=== PATIENT | male | born 1980 | race Caucasian/White ===

== ENCOUNTER → 2017-02-13 | Outpatient (REF) | payer OTHER | LOC: M LAB REF 16:04 | PROVIDERS: ATTEND Physician Assistant | DX: R53.81 Other malaise (principal) ==

== ENCOUNTER → 2017-05-03 | Outpatient (REF) | payer OTHER ==
[2017-05-03 13:31] LABS: MEAN CORPUSCULAR HGB CONC 35.9 g/dl (32.0-36.5); MEAN CORPUSCULAR VOLUME 89.2 fl (80.0-96.0); RED CELL DISTRIBUTION WIDTH 12.8 % (11.5-14.5); WHITE BLOOD COUNT 5.6 K/mm3 (4.0-10.0)
[2017-05-03 13:53] LABS: ALBUMIN 4.7 GM/DL (3.2-5.2); ALBUMIN/GLOBULIN RATIO 1.81 (1.00-1.93); ALKALINE PHOSPHATASE 80 U/L (45-117); ALT/SGPT 26 U/L (12-78); ANION GAP 6 MEQ/L (8-16); AST/SGOT 16 U/L (15-37); BILIRUBIN,TOTAL 0.6 MG/DL (0.2-1.0); BLOOD UREA NITROGEN 13 MG/DL (7-18); CALCIUM LEVEL 9.1 MG/DL (8.5-10.1); CARBON DIOXIDE LEVEL 31 MEQ/L (21-32); CHLORIDE LEVEL 104 MEQ/L (98-107); CHOLESTEROL LEVEL 207 MG/DL (<200); CREATININE FOR GFR 1.19 MG/DL (0.70-1.30); GLOMERULAR FILTRATION RATE > 60.0 (>60); GLUCOSE, FASTING 90 MG/DL (70-105); POTASSIUM SERUM 4.4 MEQ/L (3.5-5.1); SODIUM LEVEL 141 MEQ/L (136-145); TOTAL PROTEIN 7.3 GM/DL (6.4-8.2); TRIGLYCERIDES LEVEL 189 MG/DL (<150)
== END ==
LOC: M SFHCPLAZ 09:54
PROVIDERS: ATTEND Nurse Practitioner Adult Health
DX: Z83.49 Family history of other endocrine, nutritional and metabolic diseases (principal)

== ENCOUNTER → 2017-05-23 | Outpatient (CLI) | payer BC, OTHER ==
[~2017-05-23] MED LIST: E-Z-GAS II EFFERVESCENT PACKET (SODIUM BICARB./CITRIC ACID/SIMETHICONE) As Ordered ONE; E-Z-HD 98% w/w 340GM SUSP BTL As Ordered ONE; E-Z-PAQUE 96% w/w SUSP 176GM BTL As Ordered ONE
--- NOTE | 2017-05-23 17:50 | REP ---
UPPER GI, AIR CONTRAST: The procedure was performed under the direct supervision of Dr. Ardon. The images were reviewed with Dr. Ardon. The deli associate film shows no organomegaly or pathological masses. The intestinal gas pattern is nonspecific. Liquid barium and gas-producing granules were given in the erect position as well as liquid barium in the prone oblique position in order to perform a double contrast upper GI examination. The oral and pharyngeal stages of deglutition are unremarkable. Esophageal transport is prompt and efficient and there is no esophagitis, stricture, mucosal ring or hiatal hernia. The gastroesophageal junction is patulous and there is gastroesophageal reflux demonstrated to above the level of the sukh. Within the stomach, there are prominent gastric folds which may represent gastritis. There is no jun ulcer identified. The duodenal engel are normally outlined. The mucosal folds are smooth and regular. There is no duodenitis, pancreatis, peptic ulcer disease or neoplasm. The visualized portion of the proximal small bowel appears normal in course and caliber. IMPRESSION: 1. The gastroesophageal junction is patulous and there is gastroesophageal reflux demonstrated to above the level of the sukh. 2. There are prominent gastric folds within the stomach. This may represent gastritis. There is no jun ulcer identified. 1 minute and 59 seconds of fluoroscopy time was utilized for this procedure. The stomach engel are normally outlined. The rugal folds are smooth and regular. There is no gastritis, neoplasm or ulcer disease. Reviewed by MARIZA Gonzalez 05/24/2017 01:34 PEdited and Signed by Arnaud Ardon MD 05/24/2017 05:34 P
== END ==
LOC: M RAD 08:58
PROVIDERS: ATTEND Nurse Practitioner Adult Health
DX: R01.1 Cardiac murmur, unspecified (principal); K21.9 Gastro-esophageal reflux disease without esophagitis

== ENCOUNTER → 2017-11-16 | Outpatient (CLI) | payer BC, OTHER | LOC: M WUC 08:09 | DX: M54.5 Low back pain (principal); M24.9 Joint derangement, unspecified; M99.03 Segmental and somatic dysfunction of lumbar region; M79.1 Myalgia | CPT/HCPCS: 72110 ==

== ENCOUNTER 2018-12-09 19:51 | Emergency (ER) | payer BC, OTHER ==
[~2018-12-09] VITALS: Ht 170.2 cm; Wt 58.6 kg
[2018-12-09] MEDS ORDERED: KETOROLAC 30 MG/ML VIAL (J1885) IV ONE (20:30)
[2018-12-09] MEDS ORDERED: MORPHINE 4 MG/ML 1ML VIAL/SYRINGE (J2270) IV ONE (20:30)
[2018-12-09] MEDS ORDERED: ONDANSETRON 4MG/2ML VIAL (J2405) IV ONE (20:30)
[2018-12-09] MEDS ORDERED: NS 1,000 ML IV ONE (20:30)
[2018-12-09 20:37] LABS: BASO % 0.8 % (0.0-1.0); EOS # 0.2 10^3/uL (0.0-0.50); EOS % 3.6 % (0.0-3.0); HEMATOCRIT 44.2 % (42.0-52.0); HEMOGLOBIN 15.6 g/dl (13.5-17.5); LYMPH # 2.1 10^3/uL (1.5-4.5); LYMPH % 39.7 % (24.0-44.0); MEAN CORPUSCULAR HEMOGLOBIN 29.9 pg (27.0-33.0); MEAN CORPUSCULAR HGB CONC 35.3 g/dl (32.0-36.5); MEAN CORPUSCULAR VOLUME 84.8 fl (80.0-96.0); MONO # 0.4 10^3/uL (0.0-0.8); MONO % 7.7 % (0.0-5.0); NEUTROPHILS # 2.5 10^3/uL (1.8-7.7); NEUTROPHILS % 47.8 % (36.0-66.0); PLATELET COUNT, AUTOMATED 231 10^3/uL (150-450); RED BLOOD COUNT 5.21 10^6/uL (4.30-6.10); WHITE BLOOD COUNT 5.3 10^3/uL (4.0-10.0)
[2018-12-09 21:02] LABS: ALBUMIN 4.8 GM/DL (3.2-5.2); ALT/SGPT 18 U/L (12-78); AMYLASE 80 U/L (25-115); BILIRUBIN,DIRECT 0.2 MG/DL (0.0-0.2); BILIRUBIN,TOTAL 0.7 MG/DL (0.2-1.0); BLOOD UREA NITROGEN 15 MG/DL (7-18); CALCIUM LEVEL 8.9 MG/DL (8.5-10.1); CARBON DIOXIDE LEVEL 29 MEQ/L (21-32); CHLORIDE LEVEL 100 MEQ/L (98-107); GLOMERULAR FILTRATION RATE > 60.0 (>60); GLUCOSE, FASTING 111 MG/DL (70-100); LIPASE 138 U/L (73-393); POTASSIUM SERUM 2.9 MEQ/L (3.5-5.1); SODIUM LEVEL 139 MEQ/L (136-145); TOTAL PROTEIN 7.3 GM/DL (6.4-8.2)
[2018-12-09] MEDS ORDERED: CIPROFLOXACIN 400 MG in APPROPRIATE DILUENT 1 EA IV ONE (21:15)
[2018-12-09] MEDS ORDERED: KCL 10MEQ/100ML SWI (KRUN) 10 MEQ in APPROPRIATE DILUENT 1 EA IV ONE ×4 (21:15)
[2018-12-09] MEDS ORDERED: POTASSIUM CHLORIDE 10 MEQ SR TABLET PO ONE (21:15)
[2018-12-09] MEDS ORDERED: MORPHINE 2 MG/ML 1ML SYRINGE (J2270) IV ONE (21:45)
--- NOTE | 2018-12-09 21:54 | REPVR ---
EXAM: US Abdomen Limited, Right Upper Quadrant EXAM DATE/TIME: 12/09/2018 9:23 PM CLINICAL HISTORY: 38 years old, male; Pain; Abdominal pain; Epigastric; Additional info: Ajay TECHNIQUE: Real-time ultrasound of the abdomen with image documentation. Examination was focused on the right upper quadrant. COMPARISON: No relevant prior studies available. FINDINGS: Liver: The liver echogenicity appears slightly decreased and the periportal triads are slightly echogenic. This "starry tamera appearance" may be seen with acute hepatitis. However, this finding has been found to have poor sensitivity and specificity. No focal hepatic lesion is identified. Gallbladder: The gallbladder is mildly distended. There is a small amount of sludge within the gallbladder. No gallbladder wall thickening or pericholecystic fluid is present. No gallstones are identified. Common bile duct: The common bile duct has a normal caliber measuring 2.3 mm. Pancreas: Inadequate evaluation of the pancreas secondary to overlying bowel gas. Right kidney: Normal. No mass. No hydronephrosis. Intraperitoneal space: No abdominal ascites. IMPRESSION: 1. Gallbladder distention with mild sludge. No gallstones, wall thickening or pericholecystic fluid is identified to indicate acute cholecystitis. Consider nonemergent hepatobiliary scan for evaluation of possible gallbladder dysfunction as clinically indicated. 2. Hepatic "starry tamera appearance" which may be seen with acute hepatitis. Correlate clinically. Electronically signed by: Elton Melo On 12/09/2018 21:53:44 PM
--- NOTE | 2018-12-09 22:33 | REPVR ---
EXAM: CT Abdomen and Pelvis Without Contrast EXAM DATE/TIME: 12/09/2018 9:12 PM CLINICAL HISTORY: 38 years old, male; Pain; Abdominal pain; Localized; Right; Additional info: R flank pain TECHNIQUE: Axial computed tomography images of the abdomen and pelvis without contrast. All CT scans at this facility use at least one of these dose optimization techniques: automated exposure control; mA and/or kV adjustment per patient size (includes targeted exams where dose is matched to clinical indication); or iterative reconstruction. Coronal and sagittal reformatted images were created and reviewed. COMPARISON: No relevant prior studies available. FINDINGS: Lower thorax: No acute findings. ABDOMEN: Liver: Normal. No mass. Gallbladder and bile ducts: The gallbladder measures 4.4 cm in diameter. Pancreas: Normal. No ductal dilation. Spleen: Normal. No splenomegaly. Adrenals: Normal. No mass. Kidneys and ureters: Normal. No hydronephrosis. Stomach and bowel: Borderline to mild fluid distention of proximal small bowel with collapsed distal small bowel suggesting some degree of small bowel obstruction. There appears to be a point of transition in the left abdomen on series 202, image #42. Appendix: There are no changes of appendicitis. A normal appendix is not seen. PELVIS: Bladder: Unremarkable as visualized. Reproductive: Unremarkable as visualized. ABDOMEN and PELVIS: Intraperitoneal space: Normal. No free air. No significant fluid collection. Bones/joints: No acute fracture. No dislocation. Soft tissues: Minimal fat umbilical hernia Vasculature: Normal. No abdominal aortic aneurysm. Lymph nodes: Normal. No enlarged lymph nodes. IMPRESSION: 1. Small bowel obstruction with a point of transition in the left abdomen. 2. Borderline gallbladder distention with no stones. 3. Otherwise negative CT abdomen/pelvis. Electronically signed by: Rob Zimmerman On 12/09/2018 22:32:47 PM
[2018-12-09] MEDS ORDERED: CIPROFLOXACIN 500 MG TAB PO ONE (23:00)
[2018-12-09] MEDS ORDERED: K-TA10TA PO (23:11)
[2018-12-09] MEDS ORDERED: NORCOTAB PO (23:11)
[2018-12-09] MEDS ORDERED: ZOFR4TAB16 PO (23:11)
[2018-12-09] MEDS ORDERED: CIPR-249 PO (23:11)
[2018-12-09 23:19] VITALS: BP 119/68
[2018-12-09] MEDS ORDERED: NORCO 5/325MG TABLET (BULK FOR ED) PO ONE (23:45)
[2018-12-10 09:57] LABS: HEPATITIS B SURFACE ANTIGEN NEGATIVE (NEGATIVE)
[2018-12-10 10:25] LABS: HEPATITIS B CORE ANTIBODY IGM NEGATIVE (NEGATIVE)
[2018-12-10 10:27] LABS: HEPATITIS A ANTIBODY IGM NEGATIVE (NEGATIVE)
--- NOTE | 2018-12-10 15:23 | ED PDOC ---
Post-Departure Follow-Up dr ellis faxed formal report of ct abd/p for fu Herminia Workman MD Dec 10, 2018 15:23
--- NOTE | 2018-12-10 15:24 | ED PDOC ---
Post-Departure Follow-Up additionally dr plaza faxed [facility]b [facility] for fu Herminia Workman MD Dec 10, 2018 15:24
== END 2018-12-09 23:59 | disposition home or self-care (01) ==
LOC: M ED 19:51
DX: N39.0 Urinary tract infection, site not specified (principal); K75.9 Inflammatory liver disease, unspecified; R10.11 Right upper quadrant pain
CPT/HCPCS: 36415; 74176; 76705; 80048; 80076; 81001; 82150; 83690; 85025; 86705; 86709; 86803; 87086; 87340; 96361; 96365; 96366; 96367; 96375; 99284; J1885; J2270; J2405

== ENCOUNTER → 2021-02-16 | Outpatient (CLI) | payer BC, OTHER ==
[~2021-02-16] MED LIST changes: +CIPR-249 PO; -E-Z-GAS II EFFERVESCENT PACKET (SODIUM BICARB./CITRIC ACID/SIMETHICONE) As Ordered ONE; -E-Z-HD 98% w/w 340GM SUSP BTL As Ordered ONE; -E-Z-PAQUE 96% w/w SUSP 176GM BTL As Ordered ONE; +HYDR-3715 PO; +K-TA10TA PO; +ZOFR4TAB16 PO
--- NOTE | 2021-02-17 03:15 | REP ---
INDICATION: CONTUSION COMPARISON: None. TECHNIQUE: AP, lateral, bilateral oblique views left 1st digit. FINDINGS: The osseous structures and joint spaces are intact and normal. There is no evidence for acute fracture or dislocation. Surrounding soft tissues are unremarkable. No subcutaneous emphysema or radiodense foreign body. IMPRESSION: . No acute fracture or dislocation. <Electronically signed by Bryant Fiore > 02/17/21 [id number]
== END ==
LOC: M WUC 16:34
PROVIDERS: ATTEND Physician Assistant
DX: S60.112A Contusion of left thumb with damage to nail, initial encounter (principal); Y92.9 Unspecified place or not applicable; Y93.9 Activity, unspecified; Y99.9 Unspecified external cause status

== ENCOUNTER → 2022-03-16 | Outpatient (REF) | payer OTHER ==
[2022-03-16 19:03] LABS: ALT/SGPT 22 U/L (12-78); BLOOD UREA NITROGEN 16 MG/DL (7-18); CALCIUM LEVEL 9.6 MG/DL (8.5-10.1); CARBON DIOXIDE LEVEL 30 MEQ/L (21-32); CHLORIDE LEVEL 103 MEQ/L (98-107); GLOMERULAR FILTRATION RATE > 60.0 (>60); GLUCOSE, FASTING 93 MG/DL (70-100); POTASSIUM SERUM 3.7 MEQ/L (3.5-5.1); SODIUM LEVEL 139 MEQ/L (136-145); TOTAL PROTEIN 7.1 GM/DL (6.4-8.2)
== END ==
LOC: M LABWUC 16:21
PROVIDERS: ATTEND Internal Medicine
DX: B35.6 Tinea cruris (principal)

== ENCOUNTER → 2024-01-16 | Outpatient (CLI) | payer OTHER, BC ==
[~2024-01-16] MED LIST changes: -K-TA10TA PO; +POTA-164 PO
[2024-01-16 14:43] LABS: BASO % 0.5 % (0.0-1.0); EOS # 0.2 10^3/uL (0.0-0.5); EOS % 3.4 % (0.0-3.0); HEMATOCRIT 45.3 % (42.0-52.0); HEMOGLOBIN 15.9 g/dl (13.5-17.5); LYMPH # 1.5 10^3/uL (1.5-5.0); LYMPH % 33.5 % (24.0-44.0); MEAN CORPUSCULAR HEMOGLOBIN 30.5 pg (27.0-33.0); MEAN CORPUSCULAR HGB CONC 35.1 g/dl (32.0-36.5); MEAN CORPUSCULAR VOLUME 86.9 fl (80.0-96.0); MONO # 0.4 10^3/uL (0.0-0.8); NEUTROPHILS # 2.3 10^3/uL (1.5-8.5); NEUTROPHILS % 53.7 % (36.0-66.0); PLATELET COUNT, AUTOMATED 202 10^3/uL (150-450); RED BLOOD COUNT 5.21 10^6/uL (4.30-6.10); WHITE BLOOD COUNT 4.4 10^3/uL (4.0-10.0)
[2024-01-16 14:46] LABS: ALBUMIN 4.7 G/DL (3.2-5.2); ALKALINE PHOSPHATASE 92 U/L (46-116); ALT/SGPT 10 U/L (7.0-40); AST/SGOT 9 U/L (<34); BILIRUBIN,TOTAL 0.9 MG/DL (0.3-1.2); BLOOD UREA NITROGEN 14 MG/DL (9-23); CALCIUM LEVEL 9.3 MG/DL (8.5-10.1); CARBON DIOXIDE LEVEL 29 MMOL/L (20-31); CHLORIDE LEVEL 105 MMOL/L (98-107); CREATININE FOR GFR 0.76 MG/DL (0.70-1.30); GLOMERULAR FILTRATION RATE > 60.0 (>60); GLUCOSE, FASTING 144 MG/DL (60-100); POTASSIUM SERUM 4.3 MMOL/L (3.5-5.1); SODIUM LEVEL 137 MMOL/L (136-145); TOTAL PROTEIN 6.9 G/DL (5.7-8.2)
[2024-01-16 15:06] LABS: CREATININE, URINE 112.3 MG/DL; MALB URINE SIEMENS < 3.0 MG/L; MAU/CREAT RATIO 2.6 MCG/MG (0.0-30.0)
[2024-01-18 16:09] LABS: INSULIN LEVEL 5.5 uIU/mL (2.6-24.9); ISLET CELL ANTIBODIES Negative (Neg:<1:1)
== END ==
LOC: M PLALAB 09:31
PROVIDERS: ATTEND Physician Assistant
DX: E11.9 Type 2 diabetes mellitus without complications (principal); K21.00 Gastro-esophageal reflux disease with esophagitis, without bleeding

== ENCOUNTER → 2024-10-21 | Outpatient (CLI) | payer BC ==
[2024-10-21 14:09] LABS: ALBUMIN 4.1 G/DL (3.2-5.2); ALKALINE PHOSPHATASE 79 U/L (40-129); ALT/SGPT 10 U/L (7.0-40); AST/SGOT 8 U/L (<34); BILIRUBIN,TOTAL 0.6 MG/DL (0.3-1.2); BLOOD UREA NITROGEN 9 MG/DL (9-23); CALCIUM LEVEL 9.4 MG/DL (8.5-10.1); CARBON DIOXIDE LEVEL 27 MMOL/L (20-31); CHLORIDE LEVEL 105 MMOL/L (98-107); CREATININE FOR GFR 0.76 MG/DL (0.70-1.30); GLOMERULAR FILTRATION RATE > 60.0 (>60); GLUCOSE, FASTING 197 MG/DL (60-100); POTASSIUM SERUM 3.8 MMOL/L (3.5-5.1); SODIUM LEVEL 141 MMOL/L (136-145); TOTAL PROTEIN 6.6 G/DL (5.7-8.2)
[2024-10-21 14:10] LABS: HEMOGLOBIN A1c 6.8 % (4.0-6.0)
== END ==
LOC: M PLALAB 10:59
PROVIDERS: ATTEND Family Medicine
DX: E11.9 Type 2 diabetes mellitus without complications (principal)

== ENCOUNTER → 2025-03-27 | Outpatient (CLI) | payer BC ==
[2025-03-27 18:49] LABS: IRON (FE) 63 UG/DL (65-175); PERCENT SATURATION 23.6 % (19.7-50.0); TOTAL IRON BINDING CAPACITY 267 UG/DL (250-425)
[2025-03-27 18:50] LABS: ALBUMIN 4.4 G/DL (3.2-5.2); ALKALINE PHOSPHATASE 85 U/L (40-129); ALT/SGPT 12 U/L (7.0-40); AST/SGOT 12 U/L (<34); BILIRUBIN,TOTAL 0.4 MG/DL (0.3-1.2); BLOOD UREA NITROGEN 13 MG/DL (9-23); CALCIUM LEVEL 9.5 MG/DL (8.5-10.1); CARBON DIOXIDE LEVEL 29 MMOL/L (20-31); CHLORIDE LEVEL 103 MMOL/L (98-107); CHOLESTEROL LEVEL 179 MG/DL (<200); CHOLESTEROL RISK RATIO 4.04 (<5); CREATININE FOR GFR 0.78 MG/DL (0.70-1.30); GLOMERULAR FILTRATION RATE > 90.0 (>60); GLUCOSE, FASTING 85 MG/DL (60-100); HDL CHOLESTEROL 44.2 MG/DL (>40); LDL CHOLESTEROL 107.6 MG/DL (<100); NON-HDL-C 134.8 MG/DL; POTASSIUM SERUM 4.1 MMOL/L (3.5-5.1); SODIUM LEVEL 141 MMOL/L (136-145); TOTAL PROTEIN 7.1 G/DL (5.7-8.2); TRIGLYCERIDES LEVEL 136 MG/DL (<150); VITAMIN B12 LEVEL 522 PG/ML (211-911)
[2025-03-27 18:51] LABS: FREE T4 1.24 NG/DL (0.89-1.76); THYROID STIMULATING HORMONE 1.293 uIU/ML (0.55-4.78)
[2025-03-27 18:56] LABS: FOLATE 15.9 NG/ML (>5.4)
[2025-03-27 19:02] LABS: HEMATOCRIT 45.8 % (42.0-52.0); HEMOGLOBIN 15.7 g/dl (13.5-17.5); MEAN CORPUSCULAR HEMOGLOBIN 29.6 pg (27.0-33.0); MEAN CORPUSCULAR HGB CONC 34.3 g/dl (32.0-36.5); MEAN CORPUSCULAR VOLUME 86.3 fl (80.0-96.0); PLATELET COUNT, AUTOMATED 196 10^3/uL (150-450); RED BLOOD COUNT 5.31 10^6/uL (4.30-6.10); WHITE BLOOD COUNT 6.5 10^3/uL (4.0-10.0)
[2025-03-27 19:50] LABS: HEMOGLOBIN A1c 7.7 % (4.0-6.0)
== END ==
LOC: M PLALAB 14:44
PROVIDERS: ATTEND Nurse Practitioner Family
DX: E10.65 Type 1 diabetes mellitus with hyperglycemia (principal); G47.00 Insomnia, unspecified; K21.00 Gastro-esophageal reflux disease with esophagitis, without bleeding; R00.2 Palpitations; Z13.220 Encounter for screening for lipoid disorders